=== PATIENT | female | born 1980 | race Caucasian/White ===

== ENCOUNTER 2018-02-06 18:48 | Emergency (ER) | payer MEDICAID ==
[~2018-02-06] VITALS: Ht 152.4 cm; Wt 99.8 kg
[2018-02-06 19:09] VITALS: BP_SYST 122
[2018-02-06] MEDS ORDERED: ACETAMINOPHEN/CODEINE 300 MG-30 MG TABLET PO ONE (20:45)
[2018-02-06 20:52] LABS: BILIRUBIN,URINE 1+ (NEGATIVE); CLARITY/URINE CLEAR (CLEAR); COLOR,URINE YELLOW (YELLOW); GLUCOSE,URINE NEGATIVE (NEGATIVE); KETONES,URINE TRACE (NEGATIVE); LEUKOCYTE ESTERASE ,URINE NEGATIVE (NEGATIVE); NITRITE, URINE NEGATIVE (NEGATIVE); PROTEIN URINE TRACE (NEGATIVE)
[2018-02-06 20:53] LABS: BLOOD, URINE TRACE (NEGATIVE)
[2018-02-06 21:00] LABS: BACTERIA,URINE MODERATE /HPF (None Seen); RBC,URINE 0-3 /HPF (0-3); WBC,URINE 0-3 /HPF (0-3)
[2018-02-06 21:15] VITALS: BP_SYST 118
== END 2018-02-06 21:15 | disposition home or self-care (01) ==
LOC: SED 18:48
DX: S23.3XXA Sprain of ligaments of thoracic spine, initial encounter (principal); S13.9XXA Sprain of joints and ligaments of unspecified parts of neck, initial encounter; F17.210 Nicotine dependence, cigarettes, uncomplicated; R03.0 Elevated blood-pressure reading, without diagnosis of hypertension; V49.9XXA Car occupant (driver) (passenger) injured in unspecified traffic accident, initial encounter; Y93.89 Activity, other specified; Y92.410 Unspecified street and highway as the place of occurrence of the external cause; Y99.8 Other external cause status
CPT/HCPCS: 72040-TC; 72080-TC; 81000-TC; 87086; 99285

== ENCOUNTER 2018-05-15 07:00 | Emergency (ER) | payer MEDICAID ==
[~2018-05-15] VITALS: Ht 152.4 cm; Wt 113.4 kg
[2018-05-15 07:08] VITALS: BP_SYST 162
[2018-05-15] MEDS ORDERED: ONDANSETRON 4 MG ODT TAB ONE (08:02)
[2018-05-15 08:05] VITALS: BP_SYST 162
[2018-05-15] MEDS ORDERED: ONDANSETRON 4 MG ODT TAB PO ONE (08:15)
== END 2018-05-15 08:05 | disposition home or self-care (01) ==
LOC: SED 07:00
DX: S90.861A Insect bite (nonvenomous), right foot, initial encounter (principal); S30.861A Insect bite (nonvenomous) of abdominal wall, initial encounter; S20.361A Insect bite (nonvenomous) of right front wall of thorax, initial encounter; W57.XXXA Bitten or stung by nonvenomous insect and other nonvenomous arthropods, initial encounter; Y93.89 Activity, other specified; Y92.89 Other specified places as the place of occurrence of the external cause; Y99.8 Other external cause status
CPT/HCPCS: 99283; Q0162

== ENCOUNTER 2019-05-22 18:27 | Emergency (ER) | payer MEDICAID ==
[~2019-05-22] VITALS: Ht 152.4 cm; Wt 95.3 kg
[2019-05-22 18:27] VITALS: BP_SYST 154
[2019-05-22] MEDS: ACETAMINOPHEN 500 MG TABLET PO ONE (20:26)
[2019-05-22] MEDS: LIDOCAINE 2%, 20 ML MDV INJ ONE (20:43)
[2019-05-22] MEDS: SODIUM BICARBONATE 8.4% VIAL 50 MEQ/50 ML VIAL INJ ONE (20:45)
[2019-05-22 21:10] VITALS: BP_SYST 142
[2019-05-22] MEDS ORDERED: BACITRACIN 1 GM OINT TP ONE (21:11)
== END 2019-05-22 21:10 | disposition home or self-care (01) ==
LOC: SED 18:27
DX: L03.012 Cellulitis of left finger (principal); Z88.6 Allergy status to analgesic agent
CPT/HCPCS: 10060; 99283; J2001

== ENCOUNTER 2022-02-24 08:07 | Emergency (ER) | payer MEDICAID ==
[~2022-02-24] VITALS: Ht 152.4 cm; Wt 68.0 kg
[2022-02-24 08:33] VITALS: BP_SYST 132
--- NOTE | 2022-02-24 08:34 | NUR ---
PT COMES IN AFTER BEING TOLD BBY HER [employer] AND GET MEDICAL CLEARANCE FROM [facility] FOR WHAT SHE THIKS IS A SMALL BUG BITE TO LEFT ARM. PT REPORTS MILD URITARIA. NO BUG BITE NOTED, NO REDNESS, NO SWELLING. PT IN NAD. VSS. DENIES N/V/D, NO FEVERS.
--- NOTE | 2022-02-24 08:37 | NUR ---
DR ROMAN IN TENT TO SEE PT ND EXAMINE
[2022-02-24] MEDS ORDERED: HYDR30OI12 TP (08:38)
--- NOTE | 2022-02-24 08:46 | NUR ---
Patient given written and verbal discharge instructions and verbalizes understanding. ER MD discussed with patient the results and treatment provided. Patient in stable condition. ID arm band removed. Rx of HYDROCORTISONE given. Patient educated on pain management and to follow up with PMD. Pain Scale . Opportunity for questions provided and answered. Medication side effect fact sheet provided.
[2022-02-24 08:47] VITALS: BP_SYST 132
== END 2022-02-24 08:46 | disposition home or self-care (01) ==
LOC: SED 08:07
DX: S50.862A Insect bite (nonvenomous) of left forearm, initial encounter (principal); L50.9 Urticaria, unspecified; Z88.6 Allergy status to analgesic agent; Z79.899 Other long term (current) drug therapy; W57.XXXA Bitten or stung by nonvenomous insect and other nonvenomous arthropods, initial encounter; Y93.89 Activity, other specified; Y92.89 Other specified places as the place of occurrence of the external cause; Y99.8 Other external cause status
CPT/HCPCS: 99282

== ENCOUNTER 2022-12-07 22:51 | Emergency (ER) | payer MEDICAID ==
[~2022-12-07] VITALS: Ht 152.4 cm; Wt 79.4 kg
[~2022-12-07 22:51] MED LIST: HYDR30OI12 TP
[2022-12-07 23:00] VITALS: BP_SYST 184
[2022-12-08] MEDS ORDERED: MORPHINE 4 MG INJ. 4 MG/ML VIAL IM ONE (00:30)
[2022-12-08] MEDS ORDERED: HYDR-3917 PO (00:49)
[2022-12-08 01:30] VITALS: BP_SYST 166
== END 2022-12-08 01:30 | disposition home or self-care (01) ==
LOC: SED 22:51
DX: M79.18 Myalgia, other site (principal); M79.601 Pain in right arm; R11.0 Nausea; R07.9 Chest pain, unspecified; Z88.6 Allergy status to analgesic agent; Z79.899 Other long term (current) drug therapy
CPT/HCPCS: 99283; 96372; J2270